=== PATIENT | female | born 1985 | race Caucasian/White ===

== ENCOUNTER 2022-11-21 18:07 | Emergency (ER) | payer MEDICAID ==
[~2022-11-21] VITALS: Ht 160 cm; Wt 65.8 kg
[2022-11-21] MEDS ORDERED: EPINEPHRINE-PF 1:1000 1 MG/ML AMPUL/VIAL ONE (18:16)
[2022-11-21] MEDS ORDERED: methylPREDNISolone SOD SUCC 125 MG/2 ML VIAL ONE (18:27)
[2022-11-21] MEDS ORDERED: FAMOTIDINE. 20 MG/2 ML VIAL IV ONE ×2 (18:27→18:30)
[2022-11-21] MEDS ORDERED: ALBUTEROL SULFATE 2.5 MG/3 ML NEBU NEB ONE (18:30)
[2022-11-21] MEDS ORDERED: IV NORMAL SALINE 1000 ML BAG IV ONE (18:30)
[2022-11-21] MEDS ORDERED: methylPREDNISolone SOD SUCC 125 MG/2 ML VIAL IV ONE (18:30)
[2022-11-21] MEDS ORDERED: IPRATROPIUM BROMIDE 0.5 MG/2.5 ML NEBU NEB ONE (18:30)
[2022-11-21] MEDS ORDERED: EPINEPHRINE 1 MG/1 ML 30 ML VIAL IM ONE (18:30)
[2022-11-21] MEDS ORDERED: ALBUTEROL SULFATE 2.5 MG/3 ML NEBU ONE (18:56)
[2022-11-21] MEDS ORDERED: IPRATROPIUM BROMIDE 0.5 MG/2.5 ML NEBU ONE (18:56)
[2022-11-21 19:05] VITALS: O2SAT 100
[2022-11-21] MEDS ORDERED: EPIN0.3P3 IM (20:10)
[2022-11-21 20:21] VITALS: BP 107/66; O2SAT 99
== END 2022-11-21 20:22 | disposition home or self-care (01) ==
LOC: ER 18:17
DX: T78.2XXA Anaphylactic shock, unspecified, initial encounter (principal); Z91.018 Allergy to other foods
CPT/HCPCS: 99284; 96374; 96361; 96375; 94640; 96372; J0171; J3490; J2930; J7040; A4663; J3590